=== PATIENT | male | born 1965 | race Caucasian/White ===

== ENCOUNTER 2018-05-03 17:24 | Emergency (ER) | payer SELFPAY ==
[2018-05-03 17:26] VITALS: BP 160/104; PULSE 85; RESP 13; TEMP 36.6; O2SAT 97; BMI 40.7
--- NOTE | 2018-05-03 17:33 | NURSING ---
NO OLD EKGS
--- NOTE | 2018-05-03 17:58 | EKG12_ITS ---
Test Reason : CHEST PAIN Blood Pressure : / mmHG Vent. Rate : 088 BPM Atrial Rate : 088 BPM P-R Int : 170 ms QRS Dur : 104 ms QT Int : 366 ms P-R-T Axes : 076 071 070 degrees QTc Int : 442 ms Normal sinus rhythm Normal ECG Confirmed by VIKKI MORA, ERA ([id number]), online editor ELIZABETH WHITE ([id number]) on 05/09/2018 9:55:21 AM Referred By: KURT Confirmed By:ERA FLOREZ MD
--- NOTE | 2018-05-03 17:58 | RAD_ITS ---
STUDY: X-RAY CHEST REASON FOR EXAM: Male, 52 years old. Sternal pain intermittent TECHNIQUE: Single AP portable view of the chest. COMPARISON: None. FINDINGS: The lungs are clear and expanded. There is no demonstrated pleural abnormality. Normal size heart. Normal mediastinum and avi. Normal visualized pulmonary arteries. Normal visualized aortic arch and descending thoracic aorta. Normal visualized thoracic spine. Normal visualized ribs, clavicles, and shoulders. There is no demonstrated abnormality of the visualized soft tissue structures of the upper abdomen. RAD/Chest 1 View (Portable) IMPRESSION: Normal x-ray examination of the chest. Electronically Signed: Mary Gonzales MD at 18:51 EST Tel , Service support ,
[2018-05-03 18:15] LABS: Absolute Lymphocyte Count 2.29 X10^3/ul (0.83-4.51); Absolute Neutrophil Count 6.8 X10^3/uL (2.0-7.7); Basophil# 0.03 X10^3/uL; Basophil% 0.3 % (0-1); Eosinophil# 0.24 X10^3/uL; Eosinophils% 2.3 % (0-5); Hematocrit 47.4 % (40-54); Hemoglobin 16.2 g/dl (13.0-16.5); Lymphocyte # 2.29 X10^3/ul (4.0); Lymphocyte % 22.1 % (19-41); Mean Corp Hgb Conc 34.2 g/gl (32-36); Mean Corpuscular Hgb 31.2 pg (27.0-32.0); Mean Corpuscular Volume 91.2 fL (80-94); Mean Platelet Vol. 10.5 fl (6.2-12.0); Monocyte# 0.98 X10^3/uL; Monocyte% 9.4 % (0-10); Neutrophil # 6.81 X10^3/uL (2.7-7.7); Neutrophil % 65.6 % (47-70); Platelet Count 324 K/mm3 (150-450); RBC Distribution Width SD 42.7 fl (35.1-43.9); White Blood Count 10.4 K/mm3 (4.4-11.0)
[2018-05-03 18:18] LABS: POSITIVE COUNT NO; POSITIVE DIFFERENTIAL NO; POSITIVE MORPHOLOGY NO
[2018-05-03 18:19] VITALS: O2SAT 97
[2018-05-03] MEDS: 0.9% Normal Saline 1,000 ML 150 ML IV (18:20)
[2018-05-03] MEDS: Aspirin 81 MG TAB.CHEW 324 MG PO (18:20)
[2018-05-03 18:29] LABS: Anion Gap 7 (5-15); BUN 9 mg/dL (7-18); BUN/Creat Ratio 9.8 RATIO (10-20); Calcium,Total 8.9 mg/dL (8.5-10.1); Chloride 108 mmol/L (98-107); Creatinine, Serum 0.92 mg/dL (0.70-1.30); EST Glomerular Filtration Rate 92 mL/min (>60); Est Glom Filt Rate - Afr Amer 112 mL/min (>60); Estimated Creatinine Clearance 99.18 ml/min; Glucose 73 mg/dL (74-106); Potassium 3.9 mmol/L (3.5-5.1); Sodium Level 140 mmol/L (136-145)
[2018-05-03 18:30] LABS: D-Dimer Quantitative (DVT/PE) < 0.27 FEU/ug/m (0.27-0.49)
[2018-05-03 18:56] VITALS: BP 153/98; PULSE 96; RESP 18; O2SAT 97
[2018-05-03 19:22] VITALS: BP 151/98; PULSE 84; RESP 15; O2SAT 97
--- NOTE | 2018-05-03 19:57 | ED.DCSUM_ITS ---
- ER Visit Summary Date of Service: 05/03/18 Chief Complaint: Chest pain History of Present Illness: The patient is a 52 M who states he woke up at 6 AM this morning with chest pain right over the sternum. He describes as a pinching sensation that lasts only a second or 2 at a time, does come back frequently. He now states he had similar symptoms last evening that were more mild. He states he has chronic shortness of breath secondary to his COPD that is not been any worse than baseline. He has had increased cough over the past week with yellow sputum. He has felt as if he may be running a fever. Patient has history of hypertension COPD. He has a strong family history for cardiac disease. Physical Examination: Blood pressure is 160/104, otherwise vitals normal. Patient is sitting upright in bed no acute distress. Head and neck examination normal. Heart is regular rate and rhythm. Lung sounds are with mild expiratory wheezes. Abdomen is soft nontender. Lower extreme examination reveals no significant edema. Test Results: EKG is sinus at 88 with no acute ischemia. Portable chest x-ray is normal. CBC is normal. Chemistry studies unremarkable. Troponin and d- dimer are both negative. Emergency Department Course and Treatment: Patient was given aspirin here. On repeat evaluation patient is sitting at bedside resting comfortably. Test results were discussed with patient and at bedside. He does have some wheezes and will be treated with prednisone. We discussed the possibility of costochondritis and that he has had recent URI symptoms. With his family history of heart disease I have recommended close follow-up with his primary care physician for stress test. He will return for any worsening symptoms. Treatment Plan: [] Disposition: Discharge Impression: Atypical chest pain This note was generated with VMTurbo dictation software. It may contain incorrect words, spelling, and punctuation that were not noted in review of the chart prior to signing ED Disposition - Plan for ED Patient: Referrals: Latonia Rios NP-C [Primary Care Provider] -
--- NOTE | 2018-05-03 19:57 | ED.DEP ---
ED Disposition - Plan for ED Patient: Disposition: Home or Assisted Living Instructions: ED Chest Pain Atypical Unkn Cause Prescriptions: predniSONE tablet 60 mg PO DAILY #15 tablet Referrals: Latonia Rios NP-C [Primary Care Provider] - 5-7 Days
[2018-05-03] MEDS: predniSONE 20 MG Tablet 60 MG PO (20:12)
[2018-05-03 20:13] VITALS: BP 153/101; PULSE 82; RESP 19; O2SAT 97
== END 2018-05-03 20:15 | disposition home or self-care (01) ==
PROVIDERS: Emergency Provider Emergency Medicine; Family Provider Nurse Practitioner Family; PCP Nurse Practitioner Family
DX: R07.89 Other chest pain (principal); Z72.0 Tobacco use
CPT/HCPCS: 71045; 80048; 84484; 85025; 85379; 93005; 96360; 96361; 99285; J7030; A4216

== ENCOUNTER 2020-04-17 19:52 | Emergency (ER) | payer BC, SELFPAY ==
[2020-04-17 19:53] VITALS: BP 149/90; PULSE 105; RESP 17; TEMP 35.8; O2SAT 95; BMI 40.1
--- NOTE | 2020-04-17 20:20 | RAD_ITS ---
STUDY: X-RAY CHEST REASON FOR EXAM: Male, 54 years old. WOKE UP AT 0430 THIS MORNING WITH N/V/D. ALSO STATES HE LOST HIS TASTE AND SMELL. TECHNIQUE: 2 AP portable view of the chest. COMPARISON: May 03, 2018 FINDINGS: There is hyperinflation of the lungs consistent with chronic obstructive lung disease (COPD). There is no demonstrated pleural abnormality. Normal size heart. Normal mediastinum and avi. Normal visualized pulmonary arteries. There is atherosclerotic calcification of the aortic arch with tortuosity. Normal visualized thoracic spine. Normal visualized ribs, clavicles, and shoulders. There is no demonstrated abnormality of the visualized soft tissue structures of the upper abdomen. RAD/Chest 1 View (Portable) IMPRESSION: COPD Electronically Signed: Samuel Finley MD at 21:20 EST , Service support ,
--- NOTE | 2020-04-17 20:37 | ED.DCSUM_ITS ---
History of Present Illness Chief Complaint: Cold Sx Informant: Patient Narrative: 54-year-old male presents for the evaluation of suspected COVID-19. Patient states that early this morning he woke had vomiting diarrhea. He lost normal taste and smell. He notes a generalized headache body aches myalgias chills sweats cough and chest congestion. He states that he smokes about 1 pack/week and has been diagnosed with COPD in the past. He also notes a history of obesity. Past Medical History - Allergies and Home Meds Allergies/Adverse Reactions: Allergies No Known Allergies Allergy (Verified 04/17/20 19:55) Primary Care Physician: Latonia Rios PUBLIC HEALTH DIRECTOR, PUBLIC HEALTH DIRECTOR-C [Primary Care Provider] - As Needed Past Medical History: - - COPD Surgical History: noncontributory Smoking Status: Current every day smoker Drugs: None Review of Systems General: Reports: Chills, Fever, Malaise, Subjective. Denies: Sweats Eyes: Denies: Visual changes - bilaterally, Diplopia ENT: Reports: - - Abnormal taste and smell. Denies: Rhinorrhea, Sore throat Cardiovascular: Denies: Chest pain, Palpitations Respiratory: Reports: Cough. Denies: Dyspnea, Dyspnea on exertion Gastrointestinal: Reports: Nausea, Vomiting, Diarrhea. Denies: Abdominal pain, Melena, Hematochezia Genitourinary: Denies: Dysuria, Hematuria, Frequency Musculoskeletal: Reports: Myalgias. Denies: Back pain, Extremity Pain Skin: Denies: Rash, Wounds Neurological: Reports: Headache. Denies: Weakness, Numbness Physical Exam Vital Signs/Narrative: Vital Signs Temp Pulse Resp BP Pulse Ox 04/17/20 19:53 96.4 F L 105 H 17 149/90 H 95 Inital Vital Signs reviewed: Yes General: Obese Head: Normocephalic, Atraumatic Eyes: Perrl, EOMI ENT: Moist mucous membranes, No rhinorrhea Neck: Supple, Nontender Cardiovascular: Regular rate, Regular rhythm, No murmurs Respiratory: No distress, CTA bilaterally, Chest nontender Abdomen: Soft, Nontender, Nondistended, Normal bowel sounds Back: Nontender, Normal Inspection Extremities: Nontender, No edema Skin: Normal color, No rash Neurological: Alert, Oriented x3, Cranial nerves II-XII grossly intact, Normal Strength, Normal Sensation Psychological: Normal affect, Normal Mood Diagnostic/Tx/Re-eval Clinical Impression(s) from Imaging Studies Chest X-Ray 04/17/20 20:20 IMPRESSION: COPD Electronically Signed: Samuel Finley MD at 21:20 EST , Service support , - Medical Decision Making My interpretation of the oral chest x-ray is no obvious infiltrate and normal mediastinal silhouette. COPD pattern suggested. Patient received a dose of Zofran. Covid swab was sent. Return negative. Patient symptoms are very classic for Covid. I suspect that he is being tested for Covid very early in the disease process and may not have enough of the virus to turn positive. I will start him on Decadron as well as albuterol MDI. He is to quarantine. Retu rn if worsening or concerns. Patient notes understanding and agreement with our plan ED Disposition - Plan for ED Patient: Disposition: Home or Assisted Living Diagnosis: COVID-19 Instructions: Coronavirus Disease 2019 (COVID-19): Overview Prescriptions: Dexamethasone [Decadron] 6 mg PO DAILY 5 Days #5 tab Prescription Printed Albuterol Inhaler [Ventolin Hfa] 2 puff INHALATION Q4H PRN PRN #1 inhaler PRN Reason: Wheezing Prescription Printed Referrals: Latonia Rios NP, PUBLIC HEALTH DIRECTOR-C [Primary Care Provider] - As Needed
[2020-04-17] MEDS: Ondansetron 4 MG/2 ML Vial IV (20:58)
[2020-04-17 21:46] VITALS: BP 134/85; PULSE 19; RESP 16; TEMP 36.6; O2SAT 95
[2020-04-17 21:56] VITALS: PULSE 85; RESP 18
[2020-04-17] MEDS: dexAMETHasone 4 MG Tablet 6 MG PO (21:56)
[2020-04-17] MEDS: INHALER, ASSIST DEVICES 1 EACH SPACER INHALATION (21:57)
== END 2020-04-17 22:01 | disposition home or self-care (01) ==
PROVIDERS: Emergency Provider Emergency Medicine; PCP Nurse Practitioner Family
DX: U07.1 COVID-19 (principal); E66.9 Obesity, unspecified; J44.9 Chronic obstructive pulmonary disease, unspecified; F17.210 Nicotine dependence, cigarettes, uncomplicated
CPT/HCPCS: 71045; 87426; 94640; 96374; 99285; A4216; J2405

== ENCOUNTER 2021-11-17 19:58 | Observation (INO) | payer BC, SELFPAY ==
[2021-11-17 20:01] VITALS: BP 145/77; PULSE 104; RESP 22; TEMP 36.4; O2SAT 95; BMI 42.9
--- NOTE | 2021-11-17 20:21 | EKG12_ITS ---
Test Reason : CP Blood Pressure : / mmHG Vent. Rate : 097 BPM Atrial Rate : 097 BPM P-R Int : 156 ms QRS Dur : 104 ms QT Int : 342 ms P-R-T Axes : 075 073 060 degrees QTc Int : 434 ms Normal sinus rhythm Normal ECG Confirmed by DAFNE MORA, ZONIA ([id number]), news video editor CARLITA JUAN ([id number]) on 11/19/2021 11:21:02 AM Referred By: MALU Confirmed By:ZONIA LEOS MD
[2021-11-17] MEDS: Aspirin 81 MG TAB.CHEW 324 MG PO (20:35)
--- NOTE | 2021-11-17 20:35 | RAD_ITS ---
STUDY: X-RAY CHEST REASON FOR EXAM: Male, 55 years old. Chest pain. TECHNIQUE: Single AP portable view of the chest. COMPARISON: 04/17/2020. FINDINGS: The lungs are mildly hyperexpanded. There is chronic interstitial coarsening suggesting bibasilar fibrosis unchanged from the previous examination. There is no new mass or infiltrate. There is no demonstrated pleural abnormality. Normal size heart. Normal mediastinum and avi. Normal visualized pulmonary arteries. Normal visualized aortic arch and descending thoracic aorta. Normal visualized thoracic spine. Normal visualized ribs, clavicles, and shoulders. There is no demonstrated abnormality of the visualized soft tissue structures of the upper abdomen. RAD/Chest 1 View (Portable) IMPRESSION: No acute cardiopulmonary disease or interval change. Electronically Signed: Flo Starks DO at 20:56 EDT ,
[2021-11-17 20:45] LABS: Absolute Lymphocyte Count 1.51 X10^3/uL (0.83-4.51); Absolute Neutrophil Count 6.6 X10^3/uL (2.0-7.7); Basophil# 0.03 X10^3/uL; Basophil% 0.3 % (0-1); Eosinophil# 0.14 X10^3/uL; Eosinophils% 1.6 % (0-5); Hematocrit 44.6 % (40-54); Hemoglobin 15.5 g/dL (13.0-16.5); Lymphocyte # 1.51 X10^3/ul (0.83-4.51); Lymphocyte % 16.8 % (19-41); Mean Corp Hgb Conc 34.8 g/dL (32-36); Mean Corpuscular Hgb 31.5 pg (27.0-32.0); Mean Corpuscular Volume 90.7 fL (80-94); Mean Platelet Vol. 10.1 fl (6.2-12.0); Monocyte# 0.71 X10^3/uL; Monocyte% 7.9 % (0-10); NRBC Flagged by Analyzer 0 % (0-5); Neutrophil # 6.59 X10^3/uL (2.7-7.7); Neutrophil % 73.2 % (47-70); Platelet Count 323 K/mm3 (150-450); RBC Distribution Width CV 12.7 % (11.6-14.6); RBC Distribution Width SD 41.6 fl (35.1-43.9); Red Blood Count 4.92 M/mm3 (4.6-6.2)
--- NOTE | 2021-11-17 20:47 | ED.VIS.CHEST ---
HPI History of Present Illness Chief Complaint: Chest Pain Detail of Chief Complaint: Midsternal chest pressure with diaphoresis Informant: patient and spouse/S.O. Onset/Context/Timing Onset: Today and Hours Activity at onset: sudden and exertion Timing: Continuous Quality: Positive for Aching, Dull and Heaviness Location: Substernal Current Severity: Gone Maximum Severity: Mild Worsened By: Nothing Relieved By: Nothing Associated Symptoms: Positive for Diaphoresis; Negative for Nausea, Vomiting, Dyspnea, Cough, Fever, Lightheadedness, Acid Reflux or Palpitations Narrative Narrative: 55-year-old male history of hypertension COPD. No prior history of cardiac disease. No history of DVT or PE. No recent travel or surgery. He was walking through a store this evening with his and he said he got midsternal chest heaviness that was something he is never had before and he broke out in a sweat. That has since resolved. It did not radiate to his neck back or jaw. He has never had any history of cardiac disease. He just quit smoking previously smoked about half pack a day. Prior Similar Symptoms: No Recent Illness/Hospitalization: No CVD Risk Factors: Positive for Hypertension and Smoking; Negative for Diabetes or Family History 1' </=55 PE Risk Factors: Negative for Recent Travel/Surgery, Recent Immobilization, Prior DVT or PE, Cancer or OCP + Smoking + >/=35 TAD Risk Factors: Negative for Marfan's Syndrome [facility] Medical History History of COPD HTN (hypertension) Home Medications albuterol sulfate 90 mcg/actuation aerosol inhaler 2 puff inhalation Q4H PRN PRN Wheezing ##1 04/17/20 [Rx Last Taken Unknown] fluticasone fur. 100 mcg-umeclid 62.5 mcg-vilant 25 mcg inhalat.powder (Trelegy Ellipta) 1 inh inhalation DAILY 11/17/21 [History Last Taken Unknown] lisinopril 10 mg tablet 10 mg PO DAILY 11/17/21 [History Last Taken Unknown] montelukast 10 mg tablet 10 mg PO DAILY 11/17/21 [History Last Taken Unknown] Allergy/AdvReac Type Severity Reaction Status Date / Time No Known Allergies Allergy Verified 04/17/20 19:55 Social History Smoking Status: Never smoker ROS ROS ED ROS Narrative Chest pain now resolved. Diaphoresis. No recent illness. No recent exertional chest pain until tonight. Review of Systems ROS Unobtainable: Denies due to encephalopathy Constitutional Constitutional ED: Denies chills or fever(s) Eyes Eyes: Reports none ENT ENT ED: Denies ear pain Cardiovascular Cardiovascular: Reports as per HPI and chest pain; Denies palpitations or racing heartbeat Respiratory/Chest Respiratory/Chest: Denies cough or dyspnea Gastrointestinal Gastrointestinal: Denies abdominal pain Genitourinary Genitourinary ED: Denies dysuria Musculoskeletal Musculoskeletal: Denies arthralgias Integumentary Denies abscess Neurologic Neurologic: Denies headache(s) Psychiatric Psychiatric: Denies anxiety Endocrine Endocrinology: Denies cold intolerance Hematologic/Lymphatic Hematologic/Lymphatic: Denies easy bleeding Allergic/Immunologic Allergic/Immunologic ED: Denies mouth swelling or tongue swelling EXAM Physical Exam Narrative Exam Narrative: Well-appearing middle-age male. Vital signs stable afebrile. Pulse ox 95% on room air no signs of hypoxia. H EENT exam unremarkable. Neck nontender. Lungs clear to auscultation bilaterally. Heart regular rate and rhythm no murmur rate about 100. Chest wall nontender. Abdomen soft nontender. Moving all 4 extremities. Calves are nontender without edema or cords. Equal symmetrical radial pulses. Normal motor strength. Neurologically is awake and alert. Const Vital Signs: 11/17/21 20:01 11/17/21 20:07 11/17/21 20:21 Temperature 97.6 F L Temperature Source Temporal Pulse Rate 104 H Respiratory Rate 22 H Respiratory Effort Normal Non-Labored Blood Pressure 145/77 H Blood Pressure Mean 99 Pulse Ox 95 Oxygen Delivery Method Room Air Positive well nourished, well developed and obese; Negative for cachectic, contractures or unkempt General Appearance ED: well developed and NAD; Negative for unkempt, cachectic, contractures or pallor Nutritional Appearance: obese; Negative for cachectic HEENT Reports moist mucous membranes normocephalic and atraumatic; Negative for trauma or tenderness Eyes PERRL and EOMs intact bilaterally General Eye ED: Negative for pale conjunctiva or scleral icterus Neck no lymphadenopathy, supple and no JVD General: Negative for tenderness Chest Wall inspection of chest normal and palpation of chest normal Resp normal respiratory effort Effort and Inspection: Negative for respiratory distress Auscultation: Negative for rales, rhonchi or wheezes Cardio regular rate, regular rhythm, S1 normal heart sound, S2 normal heart sound and no murmurs Rate: Negative for bradycardia Rhythm: Negative for abnormal rhythm Peripheral Pulses: pulses 2+ throughout GI normal to inspection, nondistended, normoactive bowel sounds, soft to palpation, non-tender, non-distended and no masses Back/Spine no CVA tenderness and no thoracic nor lumbar tenderness General Back: Negative for CVA tenderness Cervical Spine: Negative for cervical spine tenderness Extremity normal to inspection General Extremety ED: Negative for edema, pulses abnormal or tenderness General Extremity: Negative for edema or pulses abnormal Neuro oriented x3 and CN's II-XII intact bilaterally Sensorium / Orientation: awake, alert, oriented to person, oriented to place and oriented to time; Negative for confused, lethargic or stuporous Motor Exam: strength 5/5 throughout Psych mental status grossly normal Appearance: Negative for unkempt Attitude: No agitated Mood & Affect: Negative for depressed or anxious Skin no rashes or lesions noted and no wounds General Skin Exam: Negative for jaundice or pallor Rashes: No rashes noted Trauma: Negative for abrasion Heart Score History: Moderately Suspicious ECG: Normal Age: >45 - <65 years Risk Factors: 1 or 2 Risk Factors Score: 3 MDM MDM MDM Narrative Medical decision making narrative: 55-year-old male with hypertension, prior smoking history and overweight. Had exertional chest pain tonight is concerning for possible cardiac etiology. Pain is resolved. Exam otherwise unremarkable. Will undergo cardiac work-up. I do feel he will need admitted for for further cardiac evaluation and most likely stress testing. Repeat exam patient doing well at 9:18 PM. Patient doing well. Pain-free. Mao all test results of both he and his . I will speak to the hospitalist about admission. Lab Data Attestation: I reviewed the patient's lab results. Lab results narrative: CBC normal white count 9. H&H 15 and 44. Platelets 323. Chemistries unremarkable gap of 7 normal BUN and creatinine. Glucose 143. Troponin 4. Labs: Laboratory Results - last 24 hr 11/17/21 11/17/21 20:36 20:36 WBC 9.0 RBC 4.92 Hgb 15.5 Hct 44.6 MCV 90.7 MCH 31.5 MCHC 34.8 RDW Std Deviation 41.6 RDW Coeff of Wily 12.7 Plt Count 323 MPV 10.1 Immature Gran % (Auto) 0.200 Neut % (Auto) 73.2 H Lymph % (Auto) 16.8 L [place] % (Auto) 7.9 Eos % (Auto) 1.6 Baso % (Auto) 0.3 Absolute Neuts (auto) 6.6 Absolute Lymphs (auto) 1.51 Nucleated RBC % 0 Sodium 138 Potassium 3.8 Chloride 107 Carbon Dioxide 24.0 Anion Gap 7 BUN 17 Creatinine 1.03 Estim Creat Clear Calc 85.64 Est GFR (MDRD) Af Amer 97 Est GFR (MDRD) Non-Af 80 BUN/Creatinine Ratio 16.5 Glucose 143 H Calcium 9.1 Troponin I High Sens 4 Radiography Chest X-Ray - ED: 1 View, Read by ED Physician, Heart, Lungs, Mediastinum, Bony Structures, No Acute Disease and Chronic Changes Diagnostic Testing: Clinical Impression(s) from Imaging Studies Chest X-Ray 11/17/21 20:35 IMPRESSION: No acute cardiopulmonary disease or interval change. Electronically Signed: Flo Starks DO at 20:56 EDT Reading Location ID and State: [address] [place] [address] Tel [phone], Service support , Chest x-ray, portable, single view shows no acute abnormality. Chronic changes. Normal cardiac silhouette mediastinum. Interpreted by myself. Rhythm Strip Rhythm Strip: Sinus Rhythm Rate: 97 Ectopy: None EKG Initial EKG: Attestation: I personally reviewed and interpreted this EKG as follows: Interpretation: Sinus Rhythm and No Acute Injury Pattern Comments: Normal sinus rhythm rate 97 no acute signs of CT or ischemia. Discharge Plan Dx/Rx/DC Orders Clinical Impression: Chest pain, Hypertension, History of tobacco abuse Disposition Disposition: Acute Care [facility]
[2021-11-17 21:01] LABS: Anion Gap 7 (5-15); BUN 17 mg/dL (7-18); BUN/Creat Ratio 16.5 RATIO (10-20); Calcium,Total 9.1 mg/dL (8.5-10.1); Chloride 107 mmol/L (98-107); Creatinine, Serum 1.03 mg/dL (0.70-1.30); EST Glomerular Filtration Rate 80 mL/min (>60); Est Glom Filt Rate - Afr Amer 97 mL/min (>60); Estimated Creatinine Clearance 85.64 ml/min; Glucose 143 mg/dL (74-106); Potassium 3.8 mmol/L (3.5-5.1); Sodium Level 138 mmol/L (136-145); Troponin-I HS (w/2H Reflex) 4 pg/mL (3.0-78.0)
[2021-11-17 21:28] VITALS: BP 152/81; PULSE 79; RESP 10; TEMP 36.4; O2SAT 96
[2021-11-17 21:35] VITALS: BP 152/81; PULSE 83; RESP 10; O2SAT 96
--- NOTE | 2021-11-17 21:53 | HP.PCM.HOS_ITS ---
HPI - General General Date of Admission: 11/17/21 Date of Service: 11/17/21 Chief Complaint: Chest pain HPI Narrative SEAN ALARCON, is a 55 M with a significant history of COPD on inhalers; HTN; and former tobacco abuse who presents to the emergency department with substernal chest pain that started about 1 hour prior to presentation. His chest pain started while he was walking. He described his chest pain as pressure. He rated his chest pain as 3-4 on a scale of 1-10. He denies any aggravating factors to the chest pain. When he sat in his vehicle the chest pain improved. Associated with his symptoms is diaphoresis. His chest pain is episodic. His chest pain does not radiate. REPLACED BY [facility] Medical History History of COPD HTN (hypertension) Home Medications albuterol sulfate 90 mcg/actuation aerosol inhaler 2 puff inhalation Q4H PRN PRN Wheezing ##1 04/17/20 [Rx Last Taken Unknown] fluticasone fur. 100 mcg-umeclid 62.5 mcg-vilant 25 mcg inhalat.powder (Trelegy Ellipta) 1 inh inhalation DAILY 11/17/21 [History Last Taken Unknown] lisinopril 10 mg tablet 10 mg PO DAILY 11/17/21 [History Last Taken Unknown] montelukast 10 mg tablet 10 mg PO DAILY 11/17/21 [History Last Taken Unknown] Allergy/AdvReac Type Severity Reaction Status Date / Time No Known Allergies Allergy Verified 04/17/20 19:55 Family History Other Diabetes Hypertension Multiple myeloma Surgical History no surgical history no surgical history Social History Smoking Status: Former smoker ROS ROS Narrative Pertinent positives and pertinent negatives as noted in HPI. All other systems were reviewed and are negative Vital Signs Vital Signs Vital Signs: 11/17/21 20:01 11/17/21 20:07 11/17/21 20:21 Temperature 97.6 F L Temperature Source Temporal Pulse Rate 104 H Respiratory Rate 22 H Respiratory Effort Normal Non-Labored Blood Pressure 145/77 H Blood Pressure Mean 99 Pulse Ox 95 Oxygen Delivery Method Room Air 11/17/21 21:28 11/17/21 21:35 Temperature 97.6 F L Temperature Source Temporal Pulse Rate 79 83 Respiratory Rate 10 L 10 L Respiratory Effort Blood Pressure 152/81 H 152/81 H Blood Pressure Mean 104 104 Pulse Ox 96 96 Oxygen Delivery Method Room Air Room Air Weight Weight: 135.6 kg Body Mass Index (BMI) 42.9 Physical Exam Narrative Physical exam: General: Well-nourished, well-developed. Head: Normocephalic, atraumatic, no tenderness Eyes: Vision is grossly intact. EOMI ENT, no trauma, moist mucous membranes, no rhinorrhea Neck: Nontender, full range of motion, no spinal tenderness, deformities, step- off CVS: Regular rate and rhythm. S1-S2 present. No murmur, gallop or rub. Respiratory : clear to auscultation bilaterally, chest wall nontender, no wheezing Abdomen: Soft, nontender, nondistended, normal bowel sounds, no masses : Deferred Back: Nontender, no CVA tenderness, no midline spinal tenderness, deformities, step-offs Extremities: Nontender full range of motion, no trauma Skin: Normal color, no trauma, abrasions Neuro: Alert, oriented, cranial nerves II through XII grossly intact. Psychiatry: Normal mood. Normal affect. Not depressed. Not anxious. Results Lab / Micro Data Attestation: I reviewed the patient's lab results. Result Diagrams: 11/17/21 20:36 11/17/21 20:36 Labs: Laboratory Results - last 24 hr 11/17/21 20:36: WBC 9.0, RBC 4.92, Hgb 15.5, Hct 44.6, MCV 90.7, MCH 31.5, MCHC 34.8, RDW Std Deviation 41.6, RDW Coeff of Wily 12.7, Plt Count 323, MPV 10.1, Immature Gran % (Auto) 0.200, Neut % (Auto) 73.2 H, Lymph % (Auto) 16.8 L, [place] % (Auto) 7.9, Eos % (Auto) 1.6, Baso % (Auto) 0.3, Absolute Neuts (auto) 6.6, Absolute Lymphs (auto) 1.51, Nucleated RBC % 0 11/17/21 20:36: Sodium 138, Potassium 3.8, Chloride 107, Carbon Dioxide 24.0, Anion Gap 7, BUN 17, Creatinine 1.03, Estim Creat Clear Calc 85.64, Est GFR (MDRD) Af Amer 97, Est GFR (MDRD) Non-Af 80, BUN/Creatinine Ratio 16.5, Glucose 143 H, Calcium 9.1, Troponin I High Sens 4 Rhythm Strip Rhythm Strip: Sinus Rhythm Rate: 97 Ectopy: None Radiology Impression Chest X-Ray 11/17/21 20:35 IMPRESSION: No acute cardiopulmonary disease or interval change. Electronically Signed: Flo Starks DO at 20:56 EDT Reading Location ID and State: [address] [place] [address] Tel [phone], Service support , Assessment & Plan Assessment/Plan (1) Chest pain: (2) Hypertension: (3) History of tobacco abuse: PLAN: Plan Chest Pain Place on a monitored bed at the PCU Actual CXR image was independently visualized. No acute cardiopulmonary process was noted. Actual EKG tracing was independently visualized. EKG tracing showed no ST or T wave ASA 81 mg p.o. daily ordered SL NTG 0.4 mg prn as needed for chest pain ordered Morphine as needed for pain ordered Will check lipid panel. Initial high sensitive troponin is negative. Serial cardiac enzymes ordered Stat EKG as needed for chest pain Treadmill Stress test in the AM if the cardiac enzymes are negative Hypertension Blood pressure is not within goal Home blood pressure medication continued. As needed hydralazine ordered. Trend blood pressure and adjust blood pressure medications. Tobacco abuse Reportedly quit smoking in June 2021. Counseled. Morbid Obesity: BMI:41.1 kg/m?. Complicates care. Lifestyle modification recommended. DVT prophylaxis: SCD ordered. Charges/Coding Visit Charges OBSV E&M: 39363 Initial observation care L3
[2021-11-17 22:00] VITALS: BP 145/84; PULSE 86; RESP 16; O2SAT 94
--- NOTE | 2021-11-17 22:32 | EKG12_ITS ---
Test Reason : CP ADMIT Blood Pressure : / mmHG Vent. Rate : 070 BPM Atrial Rate : 070 BPM P-R Int : 178 ms QRS Dur : 104 ms QT Int : 390 ms P-R-T Axes : 053 063 059 degrees QTc Int : 421 ms Normal sinus rhythm Normal ECG Confirmed by DAFNE MORA, ZONIA ([id number]), editor dictionary CARLITA JUAN ([id number]) on 11/19/2021 11:34:44 AM Referred By: DR REA Confirmed By:ZONIA LEOS MD
[2021-11-17 22:34] VITALS: BMI 41.1
[2021-11-17 22:38] VITALS: BP 155/83; PULSE 87; RESP 12; TEMP 36.8; O2SAT 96
[2021-11-17 22:42] LABS: Reflex Troponin-HS? (from REC) Y
[2021-11-17 23:00] LABS: Troponin-I HS 4 pg/mL (3.0-78.0)
[2021-11-17 23:01] VITALS: PULSE 92
[2021-11-18] VITALS (14 sets, daily range): BP systolic 111–144; BP diastolic 71–89; PULSE 64–78; RESP 16–18; TEMP 36.5–36.7; O2SAT 94–98
[2021-11-18 02:46] LABS: Absolute Lymphocyte Count 2.06 X10^3/uL (0.83-4.51); Absolute Neutrophil Count 4.6 X10^3/uL (2.0-7.7); Basophil# 0.04 X10^3/uL; Basophil% 0.5 % (0-1); Eosinophil# 0.25 X10^3/uL; Eosinophils% 3.2 % (0-5); Hematocrit 43.7 % (40-54); Hemoglobin 14.9 g/dL (13.0-16.5); Lymphocyte # 2.06 X10^3/ul (0.83-4.51); Lymphocyte % 26.4 % (19-41); Mean Corp Hgb Conc 34.1 g/dL (32-36); Mean Corpuscular Hgb 31.6 pg (27.0-32.0); Mean Corpuscular Volume 92.6 fL (80-94); Mean Platelet Vol. 10.2 fl (6.2-12.0); Monocyte# 0.86 X10^3/uL; NRBC Flagged by Analyzer 0 % (0-5); Neutrophil # 4.57 X10^3/uL (2.7-7.7); Neutrophil % 58.5 % (47-70); Platelet Count 286 K/mm3 (150-450); RBC Distribution Width CV 12.6 % (11.6-14.6); RBC Distribution Width SD 43.4 fl (35.1-43.9); Red Blood Count 4.72 M/mm3 (4.6-6.2); White Blood Count 7.8 K/mm3 (4.4-11.0)
[2021-11-18 03:04] LABS: Troponin-I HS 4 pg/mL (3.0-78.0)
[2021-11-18 03:16] LABS: Anion Gap 6 (5-15); BUN 20 mg/dL (7-18); BUN/Creat Ratio 24.2 RATIO (10-20); Calcium,Total 8.3 mg/dL (8.5-10.1); Chloride 109 mmol/L (98-107); Cholesterol 190 mg/dL (200); Creatinine, Serum 0.83 mg/dL (0.70-1.30); EST Glomerular Filtration Rate 103 mL/min (>60); Est Glom Filt Rate - Afr Amer 125 mL/min (>60); Estimated Creatinine Clearance 106.28 ml/min; Glucose 109 mg/dL (74-106); High Density Lipoprotein 38 mg/dL; Sodium Level 138 mmol/L (136-145); Triglycerides 110 mg/dL; Very Low Density Lipoprotein 22 mg/dL (5-40)
[2021-11-18] MEDS: Lisinopril 10 MG Tablet PO (05:48)
[2021-11-18] MEDS: Aspirin E.C. 81 MG Tablet PO (05:48)
--- NOTE | 2021-11-18 05:55 | ECHOD_ITS ---
[id number] ECHO^ECHOD^Echo Complete [id number] Reason For Study: Chest Pain Procedure This was a 2D Doppler, Color Flow transthoracic echocardiogram. The study was technically difficult. Exam performed in department. Left Ventricle Based upon the 2D echocardiographic and contrast enhanced images obtained there appears to be grossly normal left ventricular size, wall motion, and systolic function. The estimated ejection fraction is 55 %. No evidence for diastolic dysfunction. Right Ventricle Normal RV size. Normal systolic function. Atria Normal left atrium. Normal right atrium. No doppler evidence for ASD. Mitral Valve There is no mitral annular calcification. Normal mitral valve. Trivial mitral valve insufficiency. Tricuspid Valve Normal tricuspid valve. Trivial tricuspid valve insufficiency. Unable to estimate RV systolic pressure/pulmonary artery pressure due to technically difficult study. Aortic Valve Trisinus/trileaflet aortic valve. Mild focal aortic valve calcification. Pulmonic Valve The pulmonic valve is not well visualized. Great Vessels Normal sized aortic root. Pericardium/Pleural No pericardial effusion. MMode/2D Measurements & Calculations RVDd: 4.2 cm LVIDd: 5.3 cm FS: 44.7 % IVSd: 0.91 cm LVIDs: 3.0 cm LVPWd: 0.93 cm Ao root diam: 3.4 cm LAV(MOD-bp): 51.7 ml LA A4 area: 17.7 cm2 LA dimension: 3.4 cm LAV(MOD-bp) Indexed: 21.3 ml/m2 LAV(MOD-sp2): 51.3 ml LAV(MOD-sp4): 52.2 ml RA A4 area: 14.1 cm2 Time Measurements MV dec time: 0.27 sec Doppler Measurements & Calculations MV E max don: 63.9 cm/sec Lat Peak E' Don: 11.6 cm/sec MVA(P1/2t): 2.7 cm2 MV A max don: 68.3 cm/sec MV E/A: 0.94 Med Peak E' Don: 10.2 cm/sec MV P1/2t max don: 69.6 cm/sec Ao V2 max: 162.6 cm/sec LV V1 max P.5 mmHg MV P1/2t: 81.4 msec Ao max P.6 mmHg LV V1 mean P.2 mmHg MV dec slope: 250.4 cm/sec2 Ao V2 mean: 116.4 cm/sec LV V1 max: 117.3 cm/sec Ao mean P.1 mmHg LV V1 mean: 83.3 cm/sec Ao V2 VTI: 32.8 cm LV V1 VTI: 22.8 cm MR max don: 72.3 cm/sec PA V2 max: 165.1 cm/sec E/E' lat: 5.5 MR max P.1 mmHg MR mean don: 42.7 cm/sec MR mean P.87 mmHg MR VTI: 22.9 cm E/E' med: 6.3 ECHO/Echo Complete Interpretation Summary The study was technically difficult. Based upon the 2D echocardiographic and contrast enhanced images obtained there appears to be grossly normal left ventricular size, wall motion, and systolic function. The estimated ejection fraction is 55 %. Trivial mitral valve insufficiency. Trivial tricuspid valve insufficiency. Mild focal aortic valve calcification. Unable to estimate RV systolic pressure/pulmonary artery pressure due to techni beth difficult study. No evidence for diastolic dysfunction. Ordering Physician: Kvng Abarca Performed By: Earl Haney RCS
[2021-11-18] MEDS: Budesonide Respules 0.5 MG/2 ML AMPUL.NEB. INHALATION ×2 (06:52→19:05)
[2021-11-18] MEDS: Ipratropium/Albuterol Sulfate 3 ML AMPUL.NEB INHALATION ×3 (06:52→19:05)
[2021-11-18] MEDS: Montelukast 10 MG Tablet PO (10:53)
--- NOTE | 2021-11-18 11:07 | STRESSREP_ITS ---
Stress Test Report Date: 11-18-2021 Procedure: Exercise tolerance test/imaging study Indications: Chest pain; diaphoresis; COPD Consent: Per the patient Procedure: The patient exercised on a Jesse protocol for 6 minutes completing Stage II achieving a peak heart rate of 148 bpm (88% predicted maximal heart rate) with a peak blood pressure 200/88 mmHg and a peak MET capacity of 7 METs. The baseline ECG demonstrated normal sinus rhythm. The peak exercise ECG demonstrated no obvious ECG changes. There were no cardiac dysrhythmias pretest, during exercise, or recovery. The functional capacity was considered average. There was no complaint of chest discomfort during exercise or recovery. The examination was discontinued secondary to dyspnea. Impression: 1. Technically adequate (percent predicted maximal heart rate greater than 85%) exercise tolerance test 2. Peak exercise ECG with no obvious ECG changes 3. There were no cardiac dysrhythmias pretest, during exercise, or recovery 4. Nuclear images pending Myocardial perfusion imaging study: Technique: The patient was injected with 14.9 mCi of technetium 99m Cardiolite and subsequently rest SPECT Cardiolite nuclear imaging was obtained in the horizontal long, vertical long, and short axis views.The patient exercised on a Jesse protocol for 6 minutes completing Stage II achieving a peak heart rate of 148 bpm (88% predicted maximal heart rate) with a peak blood pressure 200/88 mmHg and a peak MET capacity of 7 METs. The patient was injected with 44.5 mCi of technetium 99m Cardiolite and subsequently stress SPECT Cardiolite nuclear imaging was obtained in the horizontal long, vertical long, and short axis views. A gated Cardiolite study at peak stress was obtained. Interpretation: Rest and stress SPECT Cardiolite nuclear imaging status post realignment, normalization, and attenuation correction, demonstrates the appearance, on the preattenuation correction images, of an area of diminished myocardial perfusion/tracer uptake in the basal to distal inferior segments with the post- stress images appearing somewhat more prominent in the inferior apical area, and on the post attenuation correction images the appearance of relative uniform tracer uptake/myocardial perfusion at rest with the post stress images appearing somewhat more prominent in the inferior apical area. There is end systolic thickening and brightening. The gated Cardiolite study demonstrates myocardial thickening and inward wall motion. The reported LVEF is 66%. Impression: 1. Rest and stress SPECT Cardiolite nuclear imaging demonstrate demonstrate myocardial perfusion changes potentially compatible with an area of previous myocardial injury/infarction involving portions of the basal to distal inferior segments with post-rest images demonstrating myocardial perfusion changes potentially compatible with an area of stress-induced myocardial ischemia in the inferior apical area, however, an element of soft tissue attenuation/artifact cannot necessarily be excluded. 2. The gated Cardiolite study reports an LVEF of 66%. This note was generated with [employer] software. It may contain incorrect words, spelling, and punctuation that were not noted in checking the note before signing.
--- NOTE | 2021-11-18 13:04 | PN.HOSP_ITS ---
Documented by User: CHRIS Cuba 11/18/21 13:09 Subjective Subjective Patient seen and examined. Patient lying in bed no distress noted. Patient evaluated for stress test. Objective Data Objective Data Vital Signs: Vital Signs Temp Pulse Resp BP Pulse Ox O2 Del Method 97.9 F 71 16 131/71 H 95 Room Air 11/18/21 10:50 11/18/21 11:29 11/18/21 10:50 11/18/21 10:50 11/18/21 10:50 11/18/21 10:50 Oxygen Delivery Method Room Air Weight: 286 lb 9.615 oz Body Mass Index (BMI) 41.1 Lab / Micro Data Result Diagrams: 11/18/21 02:40 11/18/21 02:40 Labs: Laboratory Results - last 24 hr 11/17/21 20:36: WBC 9.0, RBC 4.92, Hgb 15.5, Hct 44.6, MCV 90.7, MCH 31.5, MCHC 34.8, RDW Std Deviation 41.6, RDW Coeff of Wily 12.7, Plt Count 323, MPV 10.1, Immature Gran % (Auto) 0.200, Neut % (Auto) 73.2 H, Lymph % (Auto) 16.8 L, [place] % (Auto) 7.9, Eos % (Auto) 1.6, Baso % (Auto) 0.3, Absolute Neuts (auto) 6.6, Absolute Lymphs (auto) 1.51, Nucleated RBC % 0 11/17/21 20:36: Sodium 138, Potassium 3.8, Chloride 107, Carbon Dioxide 24.0, Anion Gap 7, BUN 17, Creatinine 1.03, Estim Creat Clear Calc 85.64, Est GFR (MDRD) Af Amer 97, Est GFR (MDRD) Non-Af 80, BUN/Creatinine Ratio 16.5, Glucose 143 H, Calcium 9.1, Troponin I High Sens 4 11/17/21 22:15: Troponin I High Sens 4 11/18/21 02:40: Troponin I High Sens 4 11/18/21 02:40: WBC 7.8, RBC 4.72, Hgb 14.9, Hct 43.7, MCV 92.6, MCH 31.6, MCHC 34.1, RDW Std Deviation 43.4, RDW Coeff of Wily 12.6, Plt Count 286, MPV 10.2, Immature Gran % (Auto) 0.400, Neut % (Auto) 58.5, Lymph % (Auto) 26.4, [place] % (Auto) 11.0 H, Eos % (Auto) 3.2, Baso % (Auto) 0.5, Absolute Neuts (auto) 4.6, Absolute Lymphs (auto) 2.06, Nucleated RBC % 0 11/18/21 02:40: Sodium 138, Potassium 4.0, Chloride 109 H, Carbon Dioxide 23.0, Anion Gap 6, BUN 20 H, Creatinine 0.83, Estim Creat Clear Calc 106.28, Est GFR (MDRD) Af Amer 125, Est GFR (MDRD) Non-Af 103, BUN/Creatinine Ratio 24.2 H, Glucose 109 H, Calcium 8.3 L, Triglycerides 110, Cholesterol 190, LDL Cholesterol 130, VLDL Cholesterol 22, HDL Cholesterol 38 L Radiography Diagnostic Testing: Radiology Impression Chest X-Ray 11/17/21 20:35 IMPRESSION: No acute cardiopulmonary disease or interval change. Electronically Signed: Flo Starks DO at 20:56 EDT Reading Location ID and State: [address] [place] [address] Tel [phone], Service support , Rhythm Strip Rhythm Strip: Sinus Rhythm Rate: 97 Ectopy: None Physical Exam Const alert, oriented x3 and no apparent distress HEENT head/scalp atraumatic and moist oral mucous membranes Head and Scalp: normocephalic Eyes conjunctivae normal Neck no lymphadenopathy and supple Resp normal respiratory effort and clear to auscultation bilaterally Cardio regular rate, regular rhythm, S1 normal heart sound and S2 normal heart sound GI normal to inspection, nondistended, normoactive bowel sounds, soft to palpation and non-tender Extremity normal to inspection, full ROM and no clubbing, cyanosis or edema Neuro oriented x3, moves all extremities and no focal motor deficits Psych affect normal Assessment & Plan Assessment/Plan (1) Chest pain: PLAN: Plan 1. Chest pain -Abnormal stress test -Cardiology consulted -Metoprolol tartrate 12.5 mg p.o. daily -Plan for patient to have cardiac catheterization 11/19/2021 -N.p.o. at midnight for procedure -Continue aspirin 2. Hyperlipidemia -Patient initiated on atorvastatin -LDL 130 3. Hypertension -Continue lisinopril 4. COPD -Continue scheduled and as needed nebulizer treatments -Continue Singulair DVT prophylaxis-SCDs This patient was seen by Leonela Torres NP-C under the supervision of Dr. Boykin 14 minutes spent in clinical coordination of patient's plan of care. Documented by User: Dr. Tiarra Boykin DO 11/18/21 14:07 Subjective Subjective Patient was seen in conjunction with Leonela Torres NP. The following represents my independent history and physical examination. Please see below for addendum the above. Patient reports he is not currently having chest pain and it seems to resolved after admission. He was able to do the stress test without any inducible chest pain either. We explained that his stress test was abnormal and given his history and symptoms along with his risk factors that we discussed the case with cardiology and they felt it prudent to perform a heart catheterization tomorrow. He is agreeable and will be made n.p.o. after midnight. Objective Data Lab / Micro Data Result Diagrams: 11/18/21 02:40 11/18/21 02:40 Physical Exam Const alert, oriented x3, no apparent distress and well nourished Constitutional Narrative: Morbidly obese white male lying in bed clutching television, appears comfortable nontoxic HEENT head/scalp atraumatic and moist oral mucous membranes Head and Scalp: normocephalic Resp normal respiratory effort, no retractions, no use of accessory muscles and clear to auscultation bilaterally Resp Narrative: Diffusely diminished but clear Auscultation: Negative for crackles, rales, rhonchi or wheezes Cardio regular rate, regular rhythm, S1 normal heart sound, S2 normal heart sound, no murmurs, no rub, no gallops, no clicks and no JVD GI normal to inspection, nondistended, normoactive bowel sounds, soft to palpation, non-tender and non-distended; Negative for hepatosplenomegaly Extremity normal to inspection and no clubbing, cyanosis or edema Neuro oriented x3, moves all extremities and no focal motor deficits Speech: speech normal Psych affect normal Assessment & Plan Assessment/Plan (1) Chest pain: PLAN: Plan Assessment: Chest pain Hypertension Hyperlipidemia Hyperglycemia COPD Morbid obesity Plan: -Stress test was abnormal -Case discussed with cardiology and based on these findings we will perform cardiac catheterization tomorrow -Start atorvastatin 80 mg -Check hemoglobin A1c -Start metoprolol 12.5 mg p.o. twice daily -Continue home lisinopril -N.p.o. after midnight Charges/Coding Visit Charges Inpatient E&M: 91610 Subs Hosp L2
[2021-11-18] MEDS: Metoprolol Tartrate 25 MG Tablet 12.5 MG PO (14:19)
--- NOTE | 2021-11-18 14:55 | CASEMGMT ---
RN CM Face to Face with patient for initial transition planning/care coordination assessment. RN CM introduced self and role at [facility]. Patient lying in bed, alert and oriented, at bedside. Patient willing to participate in assessment and is able to answer all questions appropriately. Care providers, pharmacy, and demographics verified. Patient wishes to discharge home, denies need for home health at this time. Patient states he has no further needs or concerns at this time. CM to follow for discharge planning needs that may arise. PCP: Penelope Specialists: Renee Palomino edging machine feeder Preferred Pharmacy: [facility] reatail at discharge Insurance: [employer] Prescription Benefit: yes Living Will/HPOA: none LNOK: Living Arrangements: Patient lives with in a split level home with 5-10 steps with railing between levels. Patient is independent and able to ambulate stairs. Transportation: self, DME/HHC: Patient states he has nebulizer at home. No previous HHC or SNF. Disposition Plan: Patient to discharge home with family support and follow-up plans in place. Savannah GUARDADO, RN, CM
--- NOTE | 2021-11-18 15:44 | CHAPLAIN ---
Type of Pastoral Visit _x__ Initial Visit ___ Follow-up Visit ___ On-call Visit ___ General Patient Visit ___ Spiritual Assessment ___ Family Conference ___ Bereavement ___ Rapid Response ___ Code Blue ___ Other (describe below) Pastoral Care Referral From _x__ Patient ___ Family ___ Nurse ___ Physician ___ Nurse Office ___ Bpm Architect ___ Other (describe below) Sacrament/Intervention _x__ Active listening ___ Anointing ___ Uatsdin ___ Bereavement ___ Communion _x__ Anitha exploration ___ _x__ Life review _x__ Prayer ___ Reconciliation ___ Sacrament of Sick _x__ Supportive presence ___ Wedding ___ Other (describe below) Pastoral Comments patient is admitted and to have heart cath tomorrow to find out what is needed; pt spouse has had stents placed so pt is aware of what might happen tomorrow; spouse is with him; pt has large family in [place] and locally; pt used to be involved in a latter-day but has no current spiritual support except for [facility]'s latter-day prayer chain; patient and spouse welcome spiritual care and prayers
--- NOTE | 2021-11-18 17:59 | CON.PCM.CA_ITS ---
Assessment & Plan Assessment/Plan (1) Unstable angina: PLAN: The patient presents with symptoms of chest discomfort and diaphoresis compatible with unstable angina. His cardiac enzymes have been negative. His ECG is demonstrated no acute changes. His transthoracic echocardiogram and stress nuclear imaging study are as noted. At the moment he continues to be monitored. He is on medical therapy. It would not be unreasonable to consider further evaluation with a diagnostic cardiac catheterization to evaluate for underlying CAD that would be contributing to his symptoms and findings. The procedure and risk were discussed with him. He was agreeable to this approach. If this is unremarkable then consideration might be given as how to proceed with further non-CAD evaluation of his symptoms. (2) Abnormal stress test: PLAN: He does have an abnormal stress nuclear imaging study as described. Based upon his cardiovascular risk factors and his symptoms and the subjective finding was felt reasonable he proceed with further evaluation with diagnostic cardiac catheterization as noted above. (3) HLD (hyperlipidemia): PLAN: The patient's lipid labs were reviewed. His total cholesterol was 198 with an LDL of 130 and an HDL of 38. His triglycerides were 110. It would not be unreasonable based upon the patient's symptoms and other objective findings to try and bring his lipids under better control especially with respect to his LDL levels. Thus he is being placed on lipid-lowering medication at this time. (4) Hypertension: PLAN: The patient has a history of hypertension. He states that has been under control on his medical therapy. His medicines can be continued with adjustment as deemed appropriate. (5) COPD (chronic obstructive pulmonary disease): PLAN: The patient will continue evaluation care for his COPD by his primary care physician and his high school teacher. Addt'l Comments The patient's case was discussed and reviewed the patient and the [facility] staff. This note was generated using a voice recognition system and there may be incorrect words, spelling or punctuation that were not noted when reviewing the office note prior to saving. HPI Consult Data Date of Consult: 11/18/21 HPI Narrative HPI Narrative: SEAN ALARCON, is a 55 year old white male who presents for cardiovascular consultation based upon concerns of symptoms compatible with unstable angina pectoris and a subsequent abnormal stress nuclear imaging study superimposed upon a history of hyperlipidemia, hypertension, and COPD. The patient states to the best of his knowledge she has no history of underlying cardiovascular disease other than his recently diagnosed hyperlipidemia and his hypertension. He states that yesterday he noted with minimal exertional activity such as walking down the sidewalk he developed a central chest heaviness that was associated with diaphoresis. He notes during that time he felt somewhat labored with his breathing. There was no nausea or emesis. He states after stopping and resting he felt better. When he returned home and was assisting with unloading the groceries he quickly developed similar type symptoms. Again he had to stop and rest. After discussing his situation with his spouse he elected to present to the hospital for further evaluation. In the hospital at rest he states he has had no further symptoms. He has been undergoing cardiac enzymes which have been negative. His ECG is demonstrated sinus rhythm with no acute ECG changes. He has undergone a transthoracic echocardiogram and an exercise tolerance test/imaging study. The results are noted below. Of note, during the exercise tolerance test he states he did feel winded but he also noted that he developed chest discomfort as he points to his left pectoral area. He attributed this to feeling winded and fatigued. He denies any history of orthopnea or PND or ongoing peripheral pitting edema. There has been no history of near syncope or syncope. He states he follows with Dr. Jacquelyn Palomino of [facility] pulmonology for his underlying COPD process. He believes that has been under much better control. [facility] Medical History History of COPD HTN (hypertension) Home Medications albuterol sulfate 90 mcg/actuation aerosol inhaler 2 puff inhalation Q4H PRN PRN Wheezing ##1 04/17/20 [Rx Last Taken Unknown] fluticasone fur. 100 mcg-umeclid 62.5 mcg-vilant 25 mcg inhalat.powder (Trelegy Ellipta) 1 inh inhalation DAILY 11/17/21 [History Last Taken Unknown] lisinopril 10 mg tablet 10 mg PO DAILY 11/17/21 [History Last Taken Unknown] montelukast 10 mg tablet 10 mg PO DAILY 11/17/21 [History Last Taken Unknown] Allergy/AdvReac Type Severity Reaction Status Date / Time No Known Allergies Allergy Verified 04/17/20 19:55 Family History Other Diabetes Hypertension Multiple myeloma Surgical History no surgical history Social History Smoking Status: Former smoker ROS Constitutional Constitutional: Reports as per HPI Eyes Eyes: Reports as per HPI ENT HEENT: Reports as per HPI Cardiovascular Cardiovascular: Reports chest pain with activity, diaphoresis and dyspnea Respiratory/Chest Respiratory/Chest: Reports dyspnea Gastrointestinal Gastrointestinal: Reports as per HPI Genitourinary Genitourinary: Reports as per HPI Musculoskeletal Musculoskeletal: Reports as per HPI Integumentary Integumentary: Reports as per HPI Neurologic Neurologic: Reports as per HPI Physical Exam Const alert, oriented x3, no apparent distress and healthy appearing Orientation / Consciousness: awake HEENT normocephalic, head/scalp atraumatic and hearing grossly normal bilaterally Eyes PERRL, EOMs intact bilaterally, conjunctivae normal and no scleral icterus Neck full ROM, supple and no JVD Carotids: normal carotid upstroke Resp normal respiratory effort and clear to auscultation bilaterally Cardio regular rate, regular rhythm, S1 normal heart sound and S2 normal heart sound GI normal to inspection, nondistended, normoactive bowel sounds Extremity no pedal edema Skin no rashes or lesions noted Psych mental status grossly normal Risk Stratification Risk Stratification Applicable: No Procedure Criteria Type of Procedure Procedure Type: Elective Elective Risks - COVID COVID Risk Discussion: The surgeon/proceduralist and patient have discussed in detail the risk of exposure to and/or potential harm posed by the COVID-19 virus with having a surgery/procedure at this time versus the risk of delaying the surgery/procedure. It is not possible to know either the risk of delaying the surgery or procedure or chance of getting an infection with perfect accuracy, but a joint decision was made between the patient and the surgeon/proceduralist to proceed at this time with the scheduled surgery/procedure as indicated on the consent form. Objective Data Vital Signs: Vital Signs Temp Pulse Resp BP Pulse Ox O2 Del Method 98.0 F 64 16 144/80 H 94 Room Air 11/18/21 14:18 11/18/21 15:00 11/18/21 14:18 11/18/21 14:19 11/18/21 14:18 11/18/21 14:18 Oxygen Delivery Method Room Air Weight: 286 lb 9.615 oz Body Mass Index (BMI) 41.1 Lab / Micro Data Result Diagrams: 11/18/21 02:40 11/18/21 02:40 Labs: Laboratory Results - last 24 hr 11/17/21 20:36: WBC 9.0, RBC 4.92, Hgb 15.5, Hct 44.6, MCV 90.7, MCH 31.5, MCHC 34.8, RDW Std Deviation 41.6, RDW Coeff of Wily 12.7, Plt Count 323, MPV 10.1, Immature Gran % (Auto) 0.200, Neut % (Auto) 73.2 H, Lymph % (Auto) 16.8 L, [place] % (Auto) 7.9, Eos % (Auto) 1.6, Baso % (Auto) 0.3, Absolute Neuts (auto) 6.6, Absolute Lymphs (auto) 1.51, Nucleated RBC % 0 11/17/21 20:36: Sodium 138, Potassium 3.8, Chloride 107, Carbon Dioxide 24.0, Anion Gap 7, BUN 17, Creatinine 1.03, Estim Creat Clear Calc 85.64, Est GFR (MDRD) Af Amer 97, Est GFR (MDRD) Non-Af 80, BUN/Creatinine Ratio 16.5, Glucose 143 H, Calcium 9.1, Troponin I High Sens 4 11/17/21 22:15: Troponin I High Sens 4 11/18/21 02:40: Troponin I High Sens 4 11/18/21 02:40: WBC 7.8, RBC 4.72, Hgb 14.9, Hct 43.7, MCV 92.6, MCH 31.6, MCHC 34.1, RDW Std Deviation 43.4, RDW Coeff of Wily 12.6, Plt Count 286, MPV 10.2, Immature Gran % (Auto) 0.400, Neut % (Auto) 58.5, Lymph % (Auto) 26.4, [place] % (Auto) 11.0 H, Eos % (Auto) 3.2, Baso % (Auto) 0.5, Absolute Neuts (auto) 4.6, Absolute Lymphs (auto) 2.06, Nucleated RBC % 0 11/18/21 02:40: Sodium 138, Potassium 4.0, Chloride 109 H, Carbon Dioxide 23.0, Anion Gap 6, BUN 20 H, Creatinine 0.83, Estim Creat Clear Calc 106.28, Est GFR (MDRD) Af Amer 125, Est GFR (MDRD) Non-Af 103, BUN/Creatinine Ratio 24.2 H, Glucose 109 H, Calcium 8.3 L, Triglycerides 110, Cholesterol 190, LDL Cholesterol 130, VLDL Cholesterol 22, HDL Cholesterol 38 L Rhythm Strip Rhythm Strip: Sinus Rhythm Rate: 97 Ectopy: None Cardiology Labs/Tests 11/17/21 20:36: WBC 9.0, RBC 4.92, Hgb 15.5, Hct 44.6, MCV 90.7, MCH 31.5, MCHC 34.8, Plt Count 323, MPV 10.1, Immature Gran % (Auto) 0.200, Neut % (Auto) 73.2 H, Lymph % (Auto) 16.8 L, [place] % (Auto) 7.9, Eos % (Auto) 1.6, Baso % (Auto) 0.3, Absolute Neuts (auto) 6.6, Nucleated RBC % 0 11/17/21 20:36: Sodium 138, Potassium 3.8, Chloride 107, Carbon Dioxide 24.0, Anion Gap 7, BUN 17, Creatinine 1.03, Est GFR (MDRD) Af Amer 97, Est GFR (MDRD) Non-Af 80, BUN/Creatinine Ratio 16.5, Glucose 143 H, Calcium 9.1 11/18/21 02:40: WBC 7.8, RBC 4.72, Hgb 14.9, Hct 43.7, MCV 92.6, MCH 31.6, MCHC 34.1, Plt Count 286, MPV 10.2, Immature Gran % (Auto) 0.400, Neut % (Auto) 58.5, Lymph % (Auto) 26.4, [place] % (Auto) 11.0 H, Eos % (Auto) 3.2, Baso % (Auto) 0.5, Absolute Neuts (auto) 4.6, Nucleated RBC % 0 11/18/21 02:40: Sodium 138, Potassium 4.0, Chloride 109 H, Carbon Dioxide 23.0, Anion Gap 6, BUN 20 H, Creatinine 0.83, Est GFR (MDRD) Af Amer 125, Est GFR (MDRD) Non-Af 103, BUN/Creatinine Ratio 24.2 H, Glucose 109 H, Calcium 8.3 L, Triglycerides 110, Cholesterol 190, LDL Cholesterol 130, VLDL Cholesterol 22, HDL Cholesterol 38 L Rhythm: Sinus rhythm EKG: Sinus rhythm ECHO: Interpretation Summary The study was technically difficult. ? Based upon the 2D echocardiographic and contrast enhanced images obtained there appears to be grossly normal left ventricular size, wall motion, and systolic function. The estimated ejection fraction is 55 %. Trivial mitral valve insufficiency. Trivial tricuspid valve insufficiency. Mild focal aortic valve calcification. Unable to estimate RV systolic pressure/pulmonary artery pressure due to technically difficult study. No evidence for diastolic dysfunction. Stress Test: Stress Test Report Date: 11-18-2021 Procedure: Exercise tolerance test/imaging study Indications: Chest pain; diaphoresis; COPD Consent: Per the patient Procedure: The patient exercised on a Jesse protocol for 6 minutes completing Stage II achieving a peak heart rate of 148 bpm (88% predicted maximal heart rate) with a peak blood pressure 200/88 mmHg and a peak MET capacity of 7 METs. The baseline ECG demonstrated normal sinus rhythm.? The peak exercise ECG demonstrated no obvious ECG changes. There were no cardiac dysrhythmias pretest, during exercise, or recovery.? The functional capacity was considered average. There was no complaint of chest discomfort during exercise or recovery. The examination was discontinued secondary to dyspnea. Impression: 1.? Technically adequate (percent predicted maximal heart rate greater than 85%) exercise tolerance test 2.? Peak exercise ECG with no obvious ECG changes 3.? There were no cardiac dysrhythmias pretest, during exercise, or recovery 4.? Nuclear images pending Myocardial perfusion imaging study: Technique: The patient was injected with 14.9 mCi of technetium 99m Cardiolite and subsequently rest SPECT Cardiolite nuclear imaging was obtained in the h orizontal long, vertical long, and short axis views.The patient exercised on a Jesse protocol for 6 minutes completing Stage II achieving a peak heart rate of 148 bpm (88% predicted maximal heart rate) with a peak blood pressure 200/88 mmHg and a peak MET capacity of 7 METs.? The patient was injected with 44.5 mCi of technetium 99m Cardiolite and subsequently stress SPECT Cardiolite nuclear imaging was obtained in the horizontal long, vertical long, and short axis views.? A gated Cardiolite study at peak stress was obtained. Interpretation: Rest and stress SPECT Cardiolite nuclear imaging status post realignment, normalization, and attenuation correction, demonstrates the appearance, on the preattenuation correction images, of an area of diminished myocardial perfusion/tracer uptake in the basal to distal inferior segments with the post- stress images appearing somewhat more prominent in the inferior apical area, and on the post attenuation correction images the appearance of relative uniform tracer uptake/myocardial perfusion at rest with the post stress images appearing somewhat more prominent in the inferior apical area.? There is end systolic thickening and brightening.? The gated Cardiolite study demonstrates myocardial thickening and inward wall motion.? The reported LVEF is 66%. Impression: 1.? Rest and stress SPECT Cardiolite nuclear imaging demonstrate demonstrate m yocardial perfusion changes potentially compatible with an area of previous myocardial injury/infarction involving portions of the basal to distal inferior segments with post-rest images demonstrating myocardial perfusion changes potentially compatible with an area of stress-induced myocardial ischemia in the inferior apical area, however, an element of soft tissue attenuation/artifact cannot necessarily be excluded. 2.? The gated Cardiolite study reports an LVEF of 66%. Radiography Diagnostic Testing: Radiology Impression Chest X-Ray 11/17/21 20:35 IMPRESSION: No acute cardiopulmonary disease or interval change. Electronically Signed: Flo Starks DO at 20:56 EDT Reading Location ID and State: [address] [place] [address] Tel [phone], Service support , Echocardiogram 11/18/21 05:55 Interpretation Summary The study was technically difficult. Based upon the 2D echocardiographic and contrast enhanced images obtained there appears to be grossly normal left ventricular size, wall motion, and systolic function. The estimated ejection fraction is 55 %. Trivial mitral valve insufficiency. Trivial tricuspid valve insufficiency. Mild focal aortic valve calcification. Unable to estimate RV systolic pressure/pulmonary artery pressure due to technically difficult study. No evidence for diastolic dysfunction. Ordering Physician: Kvng Abarca Performed By: Earl Haney RCS
[2021-11-18] MEDS: 0.9% Saline Lock 10 ML Syringe IV (21:01)
[2021-11-18] MEDS: Atorvastatin Calcium 80 MG Tablet PO (21:03)
[2021-11-19] VITALS (7 sets, daily range): BP systolic 117–139; BP diastolic 68–77; PULSE 62–85; RESP 14–20; TEMP 36.1–36.4; O2SAT 97–99; BMI 41.1
[2021-11-19] MEDS: 0.9% Saline Lock 10 ML Syringe IV (00:12)
--- NOTE | 2021-11-19 05:55 | EKG12_ITS ---
Test Reason : ROUTINE Blood Pressure : / mmHG Vent. Rate : 060 BPM Atrial Rate : 060 BPM P-R Int : 168 ms QRS Dur : 108 ms QT Int : 412 ms P-R-T Axes : 064 070 062 degrees QTc Int : 412 ms Normal sinus rhythm Normal ECG Confirmed by DAFNE MORA, ZONIA ([id number]), senior editor CARLITA JUAN ([id number]) on 11/25/2021 8:03:01 AM Referred By: YVONNE Confirmed By:ZONIA LEOS MD
[2021-11-19] MEDS: Metoprolol Tartrate 25 MG Tablet 12.5 MG PO (06:26)
[2021-11-19] MEDS: Lisinopril 10 MG Tablet PO (06:26)
[2021-11-19] MEDS: Aspirin E.C. 81 MG Tablet PO (06:27)
[2021-11-19] MEDS: Budesonide Respules 0.5 MG/2 ML AMPUL.NEB. INHALATION (07:00)
[2021-11-19] MEDS: Ipratropium/Albuterol Sulfate 3 ML AMPUL.NEB INHALATION ×2 (07:00→12:47)
[2021-11-19 07:06] LABS: Absolute Lymphocyte Count 1.68 X10^3/uL (0.83-4.51); Absolute Neutrophil Count 5.3 X10^3/uL (2.0-7.7); Basophil# 0.03 X10^3/uL; Basophil% 0.4 % (0-1); Eosinophil# 0.23 X10^3/uL; Eosinophils% 2.8 % (0-5); Hematocrit 46.7 % (40-54); Hemoglobin 16.1 g/dL (13.0-16.5); Lymphocyte # 1.68 X10^3/ul (0.83-4.51); Lymphocyte % 20.8 % (19-41); Mean Corp Hgb Conc 34.5 g/dL (32-36); Mean Corpuscular Hgb 32.2 pg (27.0-32.0); Mean Corpuscular Volume 93.4 fL (80-94); Mean Platelet Vol. 10.4 fl (6.2-12.0); Monocyte# 0.82 X10^3/uL; Monocyte% 10.1 % (0-10); NRBC Flagged by Analyzer 0 % (0-5); Neutrophil % 65.7 % (47-70); Platelet Count 278 K/mm3 (150-450); RBC Distribution Width CV 12.9 % (11.6-14.6); RBC Distribution Width SD 44.1 fl (35.1-43.9); White Blood Count 8.1 K/mm3 (4.4-11.0)
[2021-11-19 07:30] LABS: Anion Gap 5 (5-15); BUN 15 mg/dL (7-18); BUN/Creat Ratio 18.1 RATIO (10-20); Calcium,Total 8.9 mg/dL (8.5-10.1); Chloride 108 mmol/L (98-107); Creatinine, Serum 0.83 mg/dL (0.70-1.30); EST Glomerular Filtration Rate 103 mL/min (>60); Est Glom Filt Rate - Afr Amer 125 mL/min (>60); Estimated Creatinine Clearance 106.28 ml/min; Glucose 99 mg/dL (74-106); Sodium Level 138 mmol/L (136-145)
[2021-11-19 09:53] LABS: Hemoglobin A1c 5.2 % (3.8-5.6)
--- NOTE | 2021-11-19 10:11 | DCINST_ITS ---
Discharge Instructions Diet Discharge Diet: Low fat / Low cholesterol Activity May shower in (days): 1 Dressing / Incision Call your doctor if your incision/area has: Continuous Slow Oozing, Sudden Increased Bleeding, Increased Pain/ Swelling, Increased Redness, Foul Smelling Discharge and Swelling at the incision site Call your doctor if you observe: Shortness of breath, Dizziness, Swelling in the ankles, Chest pain and Increased palpitations (irregular heartbeat) Remove Dressing in: 1 day Follow Up Care Test Results: Test results from this visit will be discussed in further detail at your follow- up appointment, if applicable. Discharge Plan Admission Admit Date/Time: 11/18/21 11:07 Primary Reason for Your Visit: Chest Pain Attending Provider: Tiarra Boykin Primary Care Provider: Ryley Negrete Consulting Providers: Kvng Abarca ; Ferny Chavez Discharge Orders/Prescriptions Prescriptions: New atorvastatin 80 mg Tablet 80 mg PO QHS 30 Days Qty: 30 0RF Continued albuterol sulfate 1 INHALER inhaler 2 puff INHALATION Q4H PRN PRN (Reason: Wheezing) Qty: 1 0RF Rx Instructions: dispense with spacer lisinopril 10 mg tablet 10 mg PO DAILY Label Comments: TAKE 1 TABLET BY MOUTH ONCE DAILY montelukast 10 mg tablet 10 mg PO DAILY Trelegy Ellipta 100-62.5-25 mcg blister with device 1 inh INHALATION DAILY Referrals / Follow Up: Ferny Chavez MD [Med Staff - Active Staff] - Within 2 Weeks Ryley Negrete MD [Primary Care Provider] - Within 2 Weeks Disposition Disposition (needs filled in before D/C Order can be placed): Home, Self Care
--- NOTE | 2021-11-19 10:16 | PCM.DC.SUM ---
Documented by User: CHRIS Cuba 11/19/21 10:20 Providers Date of Admission: 11/18/21 Date of Discharge: 11/19/21 Primary Care Physician: Dr. Ryley Negrete MD Consultations 11/18/21 13:06 Consult: Cardiology Routine Consulting Provider: Ferny Chavez Reason for Consult: abnormal stress test EMERGENT Consult: No MD Notified: Yes Date Notified: 11/18/21 Time Notified: 13:06 Method of Notification: Verbal Reason For Visit: CHEST PAIN Diagnosis Discharge Diagnosis (1) Unstable angina: Status: Acute Code(s): I20.0 - Unstable angina (2) Abnormal stress test: Status: Acute Code(s): R94.39 - Abnormal result of other cardiovascular function study (3) HLD (hyperlipidemia): Status: Acute Code(s): E78.5 - Hyperlipidemia, unspecified (4) Hypertension: Status: Chronic Code(s): I10 - Essential (primary) hypertension (5) COPD (chronic obstructive pulmonary disease): Status: Chronic Code(s): J44.9 - Chronic obstructive pulmonary disease, unspecified Plan 1. Chest pain -Abnormal stress test -Cardiology consulted -Metoprolol tartrate 12.5 mg p.o. daily -Plan for patient to have cardiac catheterization 11/19/2021 -N.p.o. at midnight for procedure -Continue aspirin 2. Hyperlipidemia -Patient initiated on atorvastatin -LDL 130 3. Hypertension -Continue lisinopril 4. COPD -Continue scheduled and as needed nebulizer treatments -Continue Singulair DVT prophylaxis-SCDs This patient was seen by CHRIS Cuba under the supervision of Dr. Boykin 14 minutes spent in clinical coordination of patient's plan of care. Medications at Discharge Home Medications albuterol sulfate 90 mcg/actuation aerosol inhaler 2 puff inhalation Q4H PRN PRN Wheezing ##1 04/17/20 fluticasone fur. 100 mcg-umeclid 62.5 mcg-vilant 25 mcg inhalat.powder (Trelegy Ellipta) 1 inh inhalation DAILY 11/17/21 lisinopril 10 mg tablet 10 mg PO DAILY 11/17/21 montelukast 10 mg tablet 10 mg PO DAILY 11/17/21 atorvastatin 80 mg tablet 80 mg PO QHS 30 days #30 tabs 11/19/21 Hospital Course Operations None Procedures 2-D Echocardiogram, Cardiac catheterization and Stress test Summary of Care Provided Minutes Spent on Discharge: 35 Hospital Course: Patient is a 55-year-old male who initially presented with chest pain. Patient underwent echocardiogram which demonstrated EF 55% and a stress test which was abnormal. Subsequently patient underwent cardiac catheterization on day of discharge which was negative. Patient will be discharged home with instructions to follow-up with cardiology as well as his PCP. Patient initiated on atorvastatin for hyperlipidemia while admitted. Physical Exam Const alert, oriented x3, no apparent distress and well nourished HEENT head/scalp atraumatic and moist oral mucous membranes Eyes conjunctivae normal Neck no lymphadenopathy and supple Resp normal respiratory effort and clear to auscultation bilaterally Resp Narrative: Diffusely diminished but clear Cardio regular rate, regular rhythm, S1 normal heart sound and S2 normal heart sound GI normal to inspection, nondistended, normoactive bowel sounds, soft to palpation and non-tender Extremity normal to inspection, full ROM and no clubbing, cyanosis or edema Neuro oriented x3, moves all extremities and no focal motor deficits Speech: speech normal Psych affect normal Weight / BMI Weight Weight: 286 lb 9.615 oz Body Mass Index (BMI) 41.1 ABG / Lab / Microbiology Data Result Diagrams: 11/19/21 06:13 11/19/21 06:13 Laboratory: Laboratory Results - last 24 hr 11/19/21 06:13: WBC 8.1, RBC 5.00, Hgb 16.1, Hct 46.7, MCV 93.4, MCH 32.2 H, MCHC 34.5, RDW Std Deviation 44.1 H, RDW Coeff of Wily 12.9, Plt Count 278, MPV 10.4, Immature Gran % (Auto) 0.200, Neut % (Auto) 65.7, Lymph % (Auto) 20.8, [place] % (Auto) 10.1 H, Eos % (Auto) 2.8, Baso % (Auto) 0.4, Absolute Neuts (auto) 5.3, Absolute Lymphs (auto) 1.68, Nucleated RBC % 0 11/19/21 06:13: Sodium 138, Potassium 4.0, Chloride 108 H, Carbon Dioxide 25.0, Anion Gap 5, BUN 15, Creatinine 0.83, Estim Creat Clear Calc 106.28, Est GFR (MDRD) Af Amer 125, Est GFR (MDRD) Non-Af 103, BUN/Creatinine Ratio 18.1, Glucose 99, Calcium 8.9 11/19/21 06:13: Hemoglobin A1c 5.2 Radiography Diagnostic Testing: Radiology Impression Echocardiogram 11/18/21 05:55 Interpretation Summary The study was technically difficult. Based upon the 2D echocardiographic and contrast enhanced images obtained there appears to be grossly normal left ventricular size, wall motion, and systolic function. The estimated ejection fraction is 55 %. Trivial mitral valve insufficiency. Trivial tricuspid valve insufficiency. Mild focal aortic valve calcification. Unable to estimate RV systolic pressure/pulmonary artery pressure due to technically difficult study. No evidence for diastolic dysfunction. Ordering Physician: Kvng Abarca Performed By: Earl Haney RCS D/C Instructions Discharge Diet: Low fat / Low cholesterol May shower in (days): 1 Call your doctor if your incision/area has: Continuous Slow Oozing, Sudden Increased Bleeding, Increased Pain/ Swelling, Increased Redness, Foul Smelling Discharge and Swelling at the incision site Call your doctor if you observe: Shortness of breath, Dizziness, Swelling in the ankles, Chest pain and Increased palpitations (irregular heartbeat) Meaningful Use Info Meaningful Use Diagnoses (Choose all that apply): None applicable Discharge Plan Admission Admit Date/Time: 11/18/21 11:07 Primary Reason for Your Visit: Chest Pain Attending Provider: Tiarra Boykin Primary Care Provider: Ryley Negrete Consulting Providers: Kvng Abarca ; Ferny Chavez Discharge Orders/Prescriptions Prescriptions: New atorvastatin 80 mg Tablet 80 mg PO QHS 30 Days Qty: 30 0RF Continued albuterol sulfate 1 INHALER inhaler 2 puff INHALATION Q4H PRN PRN (Reason: Wheezing) Qty: 1 0RF Rx Instructions: dispense with spacer lisinopril 10 mg tablet 10 mg PO DAILY Label Comments: TAKE 1 TABLET BY MOUTH ONCE DAILY montelukast 10 mg tablet 10 mg PO DAILY Trelegy Ellipta 100-62.5-25 mcg blister with device 1 inh INHALATION DAILY Referrals / Follow Up: Ferny Chavez MD [Med Staff - Active Staff] - Within 2 Weeks Ryley Negrete MD [Primary Care Provider] - Within 2 Weeks Disposition Disposition (needs filled in before D/C Order can be placed): Home, Self Care Documented by User: Dr. Tiarra Boykin DO 11/19/21 11:43 Providers Date of Admission: 11/18/21 Reason For Visit: CHEST PAIN Diagnosis Discharge Diagnosis (1) Unstable angina: Status: Acute Code(s): I20.0 - Unstable angina (2) Abnormal stress test: Status: Acute Code(s): R94.39 - Abnormal result of other cardiovascular function study (3) HLD (hyperlipidemia): Status: Acute Code(s): E78.5 - Hyperlipidemia, unspecified (4) Hypertension: Status: Chronic Code(s): I10 - Essential (primary) hypertension (5) COPD (chronic obstructive pulmonary disease): Status: Chronic Code(s): J44.9 - Chronic obstructive pulmonary disease, unspecified Medications at Discharge Home Medications albuterol sulfate 90 mcg/actuation aerosol inhaler 2 puff inhalation Q4H PRN PRN Wheezing ##1 04/17/20 fluticasone fur. 100 mcg-umeclid 62.5 mcg-vilant 25 mcg inhalat.powder (Trelegy Ellipta) 1 inh inhalation DAILY 11/17/21 lisinopril 10 mg tablet 10 mg PO DAILY 11/17/21 montelukast 10 mg tablet 10 mg PO DAILY 11/17/21 atorvastatin 80 mg tablet 80 mg PO QHS 30 days #30 tabs 11/19/21 Hospital Course Summary of Care Provided Minutes Spent on Discharge: 36 Hospital Course: Mr. Henry is a 55-year-old white male who presented emergency department [facility] on 11/17/2021 complaining of chest pain. Patient had a notable history of COPD secondary to previous tobacco abuse and hypertension but had never had any coronary issues. He presented with substernal chest pain that started approximately 1 hour prior to presentation while he was exerting himself. He described it as chest pressure and rated the pain at 3-4 out of 10. He denied any aggravating factors to the pain and he noted when he sat in his vehicle the chest pain improved. He did complain of some associated diaphoresis but denied any nausea or vomiting/shortness of breath. The pain was episodic and did not radiate anywhere. He was admitted to the medical floor where his cardiac enzymes were cycled and found to be negative x3. His EKG did not show any signs of acute ischemia on presentation. We did obtain a lipid panel and his total cholesterol was 190 with an LDL of 130, HDL 38 and triglycerides 110. We started him on a statin at that time. He was noted to have some hyperglycemia therefore we obtain hemoglobin A1c which was found to be 5.2. An echocardiogram was performed and found an EF of 55% with trivial mitral and tricuspid valve insufficiency and no evidence of diastolic dysfunction. His stress test was read to be abnormal so he was taken for cardiac catheterization on the a.m. of 11/19/2021. Cardiac catheterization revealed no obstructive coronary disease per discussion with cardiology and the patient was stable for discharge home. The patient had no recurrent chest pain during his hospital course. Only medication changes were the addition of atorvastatin. He will need follow-up LFTs and lipid profile in 6 weeks. We recommended he follow-up with his primary care physician within the next 1 to 2 weeks. Discharge diagnoses: Atypical chest pain Hyperlipidemia Hypertension Hyperglycemia COPD Morbid obesity History of tobacco abuse Physical Exam Const alert, oriented x3, no apparent distress and well nourished Constitutional Narrative: Morbidly obese, middle-aged, white male sitting up in bed, appears comfortable nontoxic, at bedside General Appearance: cooperative HEENT normocephalic, head/scalp atraumatic and moist oral mucous membranes HEENT Narrative: Mallampati 3, dentition is fair, no thrush Eyes EOMs intact bilaterally Eyes Narrative: No scleral icterus Neck no lymphadenopathy, supple and thyroid normal Neck Narrative: Trachea midline Resp Auscultation: Negative for rales, rhonchi, wheezes or diminished lung sounds Cardio regular rate, regular rhythm, S1 normal heart sound, S2 normal heart sound, no murmurs, no rub, no gallops and peripheral pulses 2+ throughout GI normal to inspection, nondistended, normoactive bowel sounds, soft to palpation and non-tender Extremity no clubbing, cyanosis or edema Extremity Narrative: 2+ pedal pulses, right radial artery with compression device in place status post cath Skin no rashes or lesions noted, no wounds, skin turgor normal, no jaundice, no petechiae and no mottling Neuro CN's II-XII intact bilaterally, no focal motor deficits and no sensory deficits noted Motor Exam: strength 5/5 throughout Psych affect normal Psych Narrative: A pleasant and appropriately interactive ABG / Lab / Microbiology Data Result Diagrams: 11/19/21 06:13 11/19/21 06:13 Discharge Plan Admission Admit Date/Time: 11/18/21 11:07 Primary Reason for Your Visit: Chest Pain Attending Provider: Tiarra Boykin Primary Care Provider: Ryley Negrete Consulting Providers: Kvng Abarca ; Ferny Chavez Discharge Orders/Prescriptions Prescriptions: New atorvastatin 80 mg Tablet 80 mg PO QHS 30 Days Qty: 30 0RF Continued albuterol sulfate 1 INHALER inhaler 2 puff INHALATION Q4H PRN PRN (Reason: Wheezing) Qty: 1 0RF Rx Instructions: dispense with spacer lisinopril 10 mg tablet 10 mg PO DAILY Label Comments: TAKE 1 TABLET BY MOUTH ONCE DAILY montelukast 10 mg tablet 10 mg PO DAILY Trelegy Ellipta 100-62.5-25 mcg blister with device 1 inh INHALATION DAILY Referrals / Follow Up: Ferny Chavez MD [Med Staff - Active Staff] - Within 2 Weeks Ryley Negrete MD [Primary Care Provider] - Within 2 Weeks Disposition Disposition (needs filled in before D/C Order can be placed): Home, Self Care Charges/Coding Visit Charges Inpatient E&M: 39967 Disch Hosp
[2021-11-19] MEDS: Montelukast 10 MG Tablet PO (10:54)
[2021-11-19] MEDS: 0.9% Normal Saline 1,000 ML 75 ML IV (11:01)
--- NOTE | 2021-11-19 11:20 | PHA.DC.MC ---
Pharmacy Service has performed discharge medication reconciliation and counseling for this patient. 1. ATORVASTATIN 80MG PO QHS The patient's discharge medication list was reviewed for discrepancies and discrepancies were resolved. Home Medications albuterol sulfate 90 mcg/actuation aerosol inhaler 2 puff inhalation Q4H PRN PRN Wheezing ##1 04/17/20 fluticasone fur. 100 mcg-umeclid 62.5 mcg-vilant 25 mcg inhalat.powder (Trelegy Ellipta) 1 inh inhalation DAILY 11/17/21 lisinopril 10 mg tablet 10 mg PO DAILY 11/17/21 montelukast 10 mg tablet 10 mg PO DAILY 11/17/21 atorvastatin 80 mg tablet 80 mg PO QHS 30 days #30 tabs 11/19/21 The patient was counseled on the following discharge medications and changes in medications for homegoing were reviewed. The Reason for Use, instructions for use, and potential side effects were reviewed for all new medications. The patient's questions regarding all of their medications were answered. The patient was able to verbally demonstrate an understanding of their discharge medications. Patient counseled by pharmacy technician inpatientRobby.
--- NOTE | 2021-11-19 15:27 | NURSING ---
All documentation and medication administration completed by Latoya Boykin completed under the supervision of this RN.
--- NOTE | 2021-11-24 10:38 | CL.D_ITS ---
Patient Name: SEAN ALARCON Study Date: 11/19/2021 Performing: Ferny Chavez MD Ht: 70 inches 177.8 cm : 1965 Wt: 287 lbs 130 kg Age: 55 Gender: male BSA: 2.43 PROCEDURE(S) PERFORMED DC01-([id number])LHC/COR/LV CLINICAL PROFILE AND INDICATIONS Indications: Worsening Angina, Suspected CAD Heart Failure: None Stress/Imaging Date: 11/18/2021tress Test with SPECT MPI: Positive Intermediate Risk Angina Classification Anginal Classification w/in 2 Weeks: CCS III CAD Presentations: Other: worsening angina CONCLUSIONS Normal Left Ventricular End Diastolic Pressure Normal LV size, wall motion,and systolic function LVEF: by LV gram 60 % obstructive) RECOMMENDATIONS Risk factor modification Medical therapy DESCRIPTION OF PROCEDURE The patient arrived to the procedure lab. The risks and benefits of the procedure as well as a full description of our services here and current unavailability of surgical backup were fully explained to the patient and/or their significant other prior to the catheterization. The Timeout was completed, verifying the correct patient and procedure. The patient's procedural site was prepped and draped in the usual fashion. Local anesthetic was given subcutaneously to right radial region with Lidocaine 2%. Using a modified Seldinger technique, arterial access was obtained via the right radial artery, a 6Fr sheath was inserted. Left Coronary Artery selective angiography was performed in multiple views using a 5 Fr. 4.0 [place] catheter. Left Coronary Artery selective angiography was performed in multiple views using a 5 Fr. JL4 catheter. Right Coronary Artery selective angiography was then performed in multiple views using a 5 Fr. JR 4 catheter. Left Ventriculography was performed in [place] projection using a 5 Fr. [place] catheter. LV to AO pullback pressures were then recorded.The arterial sheath was pulled and a TR Band was applied for hemostasis w/ 12ml air CORONARY ANGIOGRAPHY DOMINANCE: Left Dominant LEFT HEART ASSESSMENT Left Ventricular Ejection Fraction: by LV Gram 60 % Normal LV wall motion Normal Left Ventricular End Diastolic Pressure LVEDP: 8 mmHg LEFT MAIN: Angiographically normal LEFT ANTERIOR DESCENDING ARTERY: PROX LAD: Mild luminal irregularities CIRCUMFLEX ARTERY: MID CIRC: Mild luminal irregularities RIGHT CORONARY ARTERY: Angiographically normal AORTIC ROOT: Angiographically normal COMPLICATIONS No Complications PROCEDURE MEDICATIONS Versed 1 mg IV Fentanyl 50 mcg IV Versed 1 mg IV Fentanyl 50 mcg IV Oxygen: 2 L/min via nasal cannula Heparin given IA 11/19/2021 08:21:29 Verapamil 2.5mg, Ntg 100mcgs, 3000 units of Heparin given IA 11/19/2021 08:21:29 SUMMARY OF HEMODYNAMIC DATA Time AIR REST ECG 07:45:56 AO 96/66 (81) SA 08:23:58 LV 123/-5, 7 08:37:35 LV 119/-9, 8 08:37:41 LV 118/-3, 17 08:38:45 LV 115/-6, 8 08:38:51 LVp 118/-8, 6 08:38:57 AOp 114/54 (79) 08:39:02 Signed By Ferny Chavez MD On 11/24/2021 10:38:09 AM Ferny Chavez MD
== END 2021-11-19 15:18 | disposition home or self-care (01) | DRG 287 ==
LOC: ED 20:54 → PCU 22:07
PROVIDERS: Nurse Practitioner Family; Admitting Provider Hospitalist; Emergency Provider Emergency Medicine; PCP Family Medicine; Visit Provider Internal Medicine
DX: I20.0 Unstable angina (principal); J44.9 Chronic obstructive pulmonary disease, unspecified; Z68.41 Body mass index [BMI] 40.0-44.9, adult; E66.01 Morbid (severe) obesity due to excess calories; I10 Essential (primary) hypertension; E78.5 Hyperlipidemia, unspecified; Z79.82 Long term (current) use of aspirin; Z87.891 Personal history of nicotine dependence; Z79.899 Other long term (current) drug therapy; Z79.51 Long term (current) use of inhaled steroids; R94.39 Abnormal result of other cardiovascular function study; R73.9 Hyperglycemia, unspecified
CPT/HCPCS: 36415; 71045; 78452; 80048; 80061; 83036; 84484; 85025; 93005; 93017; 93306; 93458; 94640; 96360; 96361; 99152; 99153; 99218; 99285; 99406; A9500; J7030; Q9967; A4216; C1769; C1894; G0378